=== PATIENT | female | born 1940 | race Caucasian/White ===

== ENCOUNTER 2023-12-03 11:06 | Inpatient (IN) | payer OTHER, MEDICARE ==
[2023-12-03 12:21] LABS: Absolute Lymphocytes (CBC) 1.4 K/uL (0.7-4.9); Hematocrit 29.4 % (36.0-45.0); Lymphocytes % 25.5 % (15.3-44.8); MCV 99.8 fL (80-100); MPV 9.1 fL (7.6-11.3); Platelets 230 thou/uL (152-406); RBC Red Blood Cell Count 2.95 M/uL (3.86-4.86)
[2023-12-03 12:41] LABS: Albumin 3.3 g/dL (3.4-5.0); Bilirubin Total 0.4 mg/dL (0.2-1.0); Protein, Total 6.2 g/dL (6.4-8.2)
--- NOTE | 2023-12-03 13:06 | RAD REPORT ---
EXAM DESCRIPTION: CTAbdomen Pelvis W Contrast - 12/03/2023 12:57 pm CLINICAL HISTORY: Abdominal pain. GI BLEED COMPARISON: No comparisons TECHNIQUE: Biphasic CT imaging of the abdomen and pelvis was performed with 100 ml non-ionic IV cont rast. All CT scans are performed using dose optimization technique as appropriate and may include automated exposure control or mA/KV adjustment according to patient size. FINDINGS: The lung bases are clear. The liver demonstrates multiple benign cysts. The spleen, pancreas, adrenal glands are within normal limits. Mild atrophy of both kidneys. Gallbladder is distended. Are No bowel obstruction, free air, free fluid or abscess. The appendix is not identified as a discrete s tructure, however, no secondary findings of appendicitis are identified. Prominent sigmoid diverticu losis coli without diverticulitis. No evidence of significant lymphadenopathy. Very mild lumbar degenerative changes. IMPRESSION: Prominent sigmoid diverticulosis coli without diverticulitis.
--- NOTE | 2023-12-03 14:28 | ER ---
Nurse's Notes [facility] Name: Nanette Boogie Age: 83 yrs Sex: Female : 1940 Arrival Date: 12/03/2023 Time: 11:06 Bed 13 Private MD: Diagnosis: Left sided colitis with rectal bleeding;Rectal Bleeding;Anemia, unspecified Presentation: 12/03 11:41 Chief complaint: Bright red blood mixed with dark red blood in stool, lower abdominal hb pain, and nausea x [address] Gutiérrez. Coronavirus screen: At this time, the client does not indicate any symptoms associated with coronavirus-19. Ebola Screen: No symptoms or risks identified at this time. Initial Sepsis Screen: Does the patient meet any 2 criteria? No. Patient's initial sepsis screen is negative. Does the patient have a suspected source of infection? No. Patient's initial sepsis screen is negative. Risk Assessment: Do you want to hurt yourself or someone else? Patient reports no desire to harm self or others. Onset of symptoms was December 01, 2023. 11:41 Method Of Arrival: Ambulatory hb 11:41 Acuity: GINI 3 hb Historical: - Allergies: 11:48 No Known Allergies; hb - PMHx: 18:10 Hypercholesterolemia; Acid Reflux; rs5 - PSHx: 18:10 hand surgery; rs5 - Immunization history:: Adult Immunizations up to date. - Social history:: Smoking status: Patient denies any tobacco usage or history of. Screenin:45 [facility] ED Fall Risk Assessment (Adult) History of falling in the last 3 months, rs5 including since admission No falls in past 3 months (0 pts) Confusion or Disorientation No (0 pts) Intoxicated or Sedated No (0 pts) Impaired Gait No (0 pts) Mobility Assist Device Used No (0 pt) Altered Elimination No (0 pt) Score/Fall Risk Level 0 - 2 = Low Risk Oriented to surroundings, Maintained a safe environment. 11:45 Abuse screen: Denies threats or abuse. Nutritional screening: No deficits noted. rs5 Tuberculosis screening: No symptoms or risk factors identified. Assessment: 11:45 General: Appears in no apparent distress. comfortable, Behavior is calm, cooperative. rs5 Pain: Denies pain. Neuro: Level of Consciousness is awake, alert, obeys commands, Oriented to person, place, time, situation. Cardiovascular: Rhythm is regular. Respiratory: Airway is patent Respiratory effort is even, unlabored, Respiratory pattern is regular, symmetrical, Breath sounds are clear bilaterally. GI: Abdomen is flat, non-distended, Bowel sounds present X 4 quads. Abd is soft and non tender X 4 quads. GI: Reports bloody stool, Patient currently denies nausea, pain. : No signs and/or symptoms were reported regarding the genitourinary system. EENT: No signs and/or symptoms were reported regarding the EENT system. 11:45 Derm: Skin is intact, Skin is pink, warm \T\ dry. Musculoskeletal: Range of motion: rs5 intact in all extremities. 12:50 Reassessment: No changes from previously documented assessment. rs5 14:01 Reassessment: Patient and/or family updated on plan of care and expected duration. Pain rs5 level reassessed. Patient is alert, oriented x 3, equal unlabored respirations, skin warm/dry/pink. Patient denies pain at this time. 14:30 Reassessment: Pt up for discharge. Awaiting hemoglobin results before discharge per MD rs5 orders. 15:10 Reassessment: No changes from previously documented assessment. Patient is alert, rs5 oriented x 3, equal unlabored respirations, skin warm/dry/pink. Provider notified of pt's hemoglobin results, discharge pending per MD instructions. 16:20 Reassessment: Patient and/or family updated on plan of care and expected duration. Pain rs5 level reassessed. Patient is alert, oriented x 3, equal unlabored respirations, skin warm/dry/pink. Patient denies pain at this time. GI: Patient currently denies nausea. 17:30 Reassessment: No changes from previously documented assessment. rs5 Vital Signs: 11:41 BP 142 / 74; Pulse 94; Resp 16; Temp 98.1(O); Pulse Ox 100% on R/A; Weight 81.65 kg; hb Height 5 ft. 7 in. ; Pain 0/10; 12:32 BP 125 / 62; Pulse 70; Resp 18; Pulse Ox 99% on R/A; rs5 13:40 BP 127 / 72; Pulse 80; Resp 17; Pulse Ox 99% on R/A; rs5 15:36 BP 125 / 80; Pulse 77; Resp 18; Pulse Ox 99% on R/A; rs5 11:41 Body Mass Index 28.19 (81.65 kg, 170.18 cm) hb 11:41 Pain Scale: Adult hb ED Course: 11:09 Patient arrived in ED. im 11:19 Casper Faustin MD is Attending Physician. kdr 11:40 Romie Wong, RN is Primary Nurse. rs5 11:45 Patient has correct armband on for positive identification. Placed in gown. Bed in low rs5 position. Call light in reach. Side rails up X2. 11:48 Triage completed. hb 11:48 Arm band placed on. hb 12:59 CT Abd/Pelvis - IV Contrast Only In Process Unspecified. EDMS 15:36 Anailsa Vargas MD is Hospitalizing Provider. kdr 15:38 No provider procedures requiring assistance completed. rs5 15:51 Blanco Coronado is Hospitalizing Provider. kdr 18:00 Patient admitted, IV remains in place. rs5 Administered Medications: No medications were administered Medication: 12:40 VIS not applicable for this client. rs5 Outcome: 14:27 Discharge ordered by . kdr 15:37 Decision to Hospitalize by Provider. kdr 18:00 Admitted to Med/surg rs5 18:00 Condition: stable 18:00 Instructed on the need for admit, Demonstrated understanding of instructions, 18:09 Patient left the ED. rs5 Signatures: Dispatcher [employer] EDMS Casper Faustin MD MD [facility] Gloria Valentine RN RN Romie Wong, ROSA RN rs5 Dawna Clay im
--- NOTE | 2023-12-03 14:28 | EDPHYS ---
Physician Documentation [facility] Name: Nanette Boogie Age: 83 yrs Sex: Female : 1940 Arrival Date: 12/03/2023 Time: 11:06 Bed 13 Private MD: ED Physician Casper Faustin HPI: 12/03 17:48 This 83 yrs old Female presents to ER via Ambulatory with complaints of GI Bleeding. kdr 17:49 Patient states that she has had bright red blood mixed with dark red blood in her stool kdr since yesterday. She is also had a very mild to minor lower abdominal pain and nausea for 2 days. Patient states that she was sent by Dr. Gutiérrez for evaluation. Onset: The symptoms/episode began/occurred gradually, 2 day(s) ago. Severity of symptoms: At their worst the symptoms were mild. The patient has experienced a previous episode. The patient has not recently seen a physician. Historical: - Allergies: 11:48 No Known Allergies; hb - PMHx: 18:10 Hypercholesterolemia; Acid Reflux; rs5 - PSHx: 18:10 hand surgery; rs5 - Immunization history:: Adult Immunizations up to date. - Social history:: Smoking status: Patient denies any tobacco usage or history of. ROS: 17:49 Constitutional: Negative for fever, chills, and weight loss, Eyes: Negative for injury, kdr pain, redness, and discharge, ENT: Negative for injury, pain, and discharge, Neck: Negative for injury, pain, and swelling, Cardiovascular: Negative for chest pain, palpitations, and edema, Respiratory: Negative for shortness of breath, cough, wheezing, and pleuritic chest pain, Back: Negative for injury and pain, : Negative for injury, bleeding, discharge, and swelling, MS/Extremity: Negative for injury and deformity, Skin: Negative for injury, rash, and discoloration, Neuro: Negative for headache, weakness, numbness, tingling, and seizure activity. Psych: Negative for depression, anxiety, suicide ideation, homicidal ideation, and hallucinations, Allergy/Immunology: Negative for hives, rash, and allergies, Endocrine: Negative for neck swelling, polydipsia, polyuria, polyphagia, and marked weight changes, Hematologic/Lymphatic: Negative for swollen nodes, abnormal bleeding, and unusual bruising, 17:49 Abdomen/GI: Positive for abdominal pain, rectal bleeding, Negative for nausea and vomiting, diarrhea, constipation, abdominal cramps, black/tarry stool, rectal pain, bowel incontinence, flatulence, Exam: 17:49 Constitutional: This is a well developed, well nourished patient who is awake, alert, kdr and in no acute distress. Head/Face: Normocephalic, atraumatic. Eyes: Pupils equal round and reactive to light, extra-ocular motions intact. Lids and lashes normal. Conjunctiva and sclera are non-icteric and not injected. Cornea within normal limits. Periorbital areas with no swelling, redness, or edema. Neck: Trachea midline, no thyromegaly or masses palpated, and no cervical lymphadenopathy. Supple, full range of motion without nuchal rigidity, or vertebral point tenderness. No Meningismus. Chest/axilla: Normal chest wall appearance and motion. Nontender with no deformity. No lesions are appreciated. Cardiovascular: Regular rate and rhythm with a normal S1 and S2. No gallops, murmurs, or rubs. Normal PMI, no JVD. No pulse deficits. Respiratory: Lungs have equal breath sounds bilaterally, clear to auscultation and percussion. No rales, rhonchi or wheezes noted. No increased work of breathing, no retractions or nasal flaring. Abdomen/GI: Soft, non-tender, with normal bowel sounds. No distension or tympany. No guarding or rebound. No evidence of tenderness throughout. Back: No spinal tenderness. No costovertebral tenderness. Full range of motion. Skin: Warm, dry with normal turgor. Normal color with no rashes, no lesions, and no evidence of cellulitis. MS/ Extremity: Pulses equal, no cyanosis. Neurovascular intact. Full, normal range of motion. Neuro: Awake and alert, GCS 15, oriented to person, place, time, and situation. Cranial nerves II-XII grossly intact. Motor strength 5/5 in all extremities. Sensory grossly intact. Cerebellar exam normal. Normal gait. Psych: Awake, alert, with orientation to person, place and time. Behavior, mood, and affect are within normal limits. Vital Signs: 11:41 BP 142 / 74; Pulse 94; Resp 16; Temp 98.1(O); Pulse Ox 100% on R/A; Weight 81.65 kg; hb Height 5 ft. 7 in. ; Pain 0/10; 12:32 BP 125 / 62; Pulse 70; Resp 18; Pulse Ox 99% on R/A; rs5 13:40 BP 127 / 72; Pulse 80; Resp 17; Pulse Ox 99% on R/A; rs5 15:36 BP 125 / 80; Pulse 77; Resp 18; Pulse Ox 99% on R/A; rs5 11:41 Body Mass Index 28.19 (81.65 kg, 170.18 cm) hb 11:41 Pain Scale: Adult hb MDM: 14:27 Patient medically screened. kdr 17:49 Data reviewed: vital signs, nurses notes, lab test result(s), radiologic studies. kdr 17:49 ED course: Since the patient's hemoglobin dropped by nearly 3 cores of a gram over a kdr 2-hour period, it was decided to admit her for further evaluation by GI. I spoke with Dr. Calvin who agreed to see the patient in consult. 12/03 11:43 Order name: CBC with Diff; Complete Time: 14:05 kdr 12/03 11:43 Order name: CMP; Complete Time: 14:05 kdr 12/03 11:43 Order name: Lipase; Complete Time: 14:05 kdr 12/03 11:43 Order name: Urinalysis w/ reflexes kdr 12/03 11:43 Order name: Type And Screen kdr 12/03 14:08 Order name: Hemoglobin kdr 12/03 17:09 Order name: Basic Metabolic Panel EDMS 12/03 17:09 Order name: Basic Metabolic Panel EDMS 12/03 17:09 Order name: Basic Metabolic Panel EDMS 12/03 17:09 Order name: Basic Metabolic Panel EDMS 12/03 17:09 Order name: Basic Metabolic Panel EDMS 12/03 17:09 Order name: Basic Metabolic Panel EDMS 12/03 17:09 Order name: CBC with Automated Diff EDMS 12/03 17:09 Order name: CBC with Automated Diff EDMS 12/03 17:09 Order name: CBC with Automated Diff EDMS 12/03 17:09 Order name: CBC with Automated Diff EDMS 12/03 17:09 Order name: CBC with Automated Diff EDMS 12/03 17:09 Order name: CBC with Automated Diff EDMS 12/03 17:10 Order name: Magnesium EDMS 12/03 17:10 Order name: Magnesium EDMS 12/03 17:10 Order name: Magnesium EDMS 12/03 17:10 Order name: Magnesium EDMS 12/03 17:10 Order name: Magnesium EDMS 12/03 17:10 Order name: Magnesium EDMS 12/03 17:10 Order name: Phosphorus EDMS 12/03 17:10 Order name: Phosphorus EDMS 12/03 17:10 Order name: Phosphorus EDMS 12/03 17:10 Order name: Phosphorus EDMS 12/03 17:10 Order name: Phosphorus EDMS 12/03 17:10 Order name: Phosphorus EDMS 12/03 12:08 Order name: CT Abd/Pelvis - IV Contrast Only; Complete Time: 14:05 kdr 12/03 16:21 Order name: GI Blood Loss Imaging EDKS 12/03 17:09 Order name: CONS Physician Consult EDMS 12/03 11:43 Order name: IV Saline Lock; Complete Time: 12:20 kdr 12/03 11:43 Order name: Labs collected and sent; Complete Time: 12:20 kdr Administered Medications: No medications were administered Disposition Summary: 12/03/23 15:37 Hospitalization Ordered Notes: Hospitalization Status: Observation kdr Location: Telemetry/MedSurg (observation)(12/03/23 15:37) kdr Condition: Fair(12/03/23 15:37) kdr Problem: new(12/03/23 15:37) kdr Symptoms: have improved(12/03/23 15:37) kdr Bed/Room Type: Standard kdr Provider: Blanco Coronado(12/03/23 15:51) kdr Room Assignment: [facility](12/03/23 17:26) eb Diagnosis - Left sided colitis with rectal bleeding kdr - Rectal Bleeding kdr - Anemia, unspecified kdr Forms: - Medication Reconciliation Form kdr - SBAR form kdr - Leadership Thank You Letter kdr Signatures: Dispatcher [employer] EDKS Casper Faustin MD MD kdr Gloria Valentine, ROSA RN Magda Duran Ricky RN RN rs5 Corrections: (The following items were deleted from the chart) 15:35 14:27 Home kdr kdr 15:35 14:27 new kdr kdr 15:35 14:27 have improved kdr kdr 15:35 14:27 Stable kdr kdr 15:35 14:27 Rectal Bleeding kdr kdr 15:51 15:37 Analisa Vargas kdr kdr 17:26 15:37 kdr eb
--- NOTE | 2023-12-03 16:21 | P.HP ---
Certification for Inpatient Patient admitted to: Observation With expected LOS: <2 Midnights Patient will require the following post-hospital care: None Practitioner: I am a practitioner with admitting privileges, knowledge of patient current condition, hospital course, and medical plan of care. Services: Services provided to patient in accordance with Admission requirements found in Title 42 Section 412.3 of the Code of Federal Regulations Patient History Date of Service: 12/03/23 Reason for admission: GI bleed, diverticulosis History of Present Illness: Nanette Luevano is an 83-year-old female with past medical history of HLD, TIA (plavix/ASA), and frequent UTI who presents to the ED with complaints of bright red recta blood mixed with dark red blood in stool, lower abdominal pain, and nausea x 2 days. She reports her rectal bleeding feeling like diarrhea. Last colonoscopy was in 2019 and endoscopy was 2016. She is taking Plavix and aspiri n which was last taken on Wednesday due to the start of bleeding. Her gastrointestinal doctor is Dr. Gutiérrez who recommended she come to the ED. Initial vitals BP 142 / 74; Pulse 94; Resp 16; Temp 98.1(O); Pulse Ox 100% on R/A Laboratory evaluation H&H 08/22, repeat hemoglobin 9.3, BUN/creatinine 20/1.08, GFR 51, UA pending CT abdomen pelvis reports "Prominent sigmoid diverticulosis coli without d iverticulitis" Nanette will be admitted to hospitalist service for further evaluation and treatment of GI bleed, Dr. Calvin has been consulted. Allergies morphine Adverse Reaction (Verified 08/22/18 13:19) CONFUSION Sulfa (Sulfonamide Antibiotics) Adverse Reaction (Verified 08/22/18 13:19) Nausea/Vomiting Home Medications: Docusate Sodium [Stool Softener] 100 mg PO DAILY 06/08/16 Gabapentin [Gralise] 300 mg PO TID 06/08/16 Montelukast [Singulair] 10 mg PO DAILY 06/08/16 Simvastatin 40 mg PO DAILY 06/08/16 Aspirin 81 mg PO DAILY 08/22/18 Calcium Carbonate/Vitamin D3 [Caltrate 600 + D Tablet] 1 each PO DAILY 08/22/18 Estrogens,Conj Cream [Premarin 0.625MG/Gm] 42.5 appl VAG M,W,F 08/22/18 Famotidine [Pepcid] 40 mg PO DAILY 08/22/18 Fexofenadine HCl [Merissa Allergy] 60 mg PO DAILY 08/22/18 Fiber [Fiber Diet] 1 each PO DAILY 08/22/18 Fluticasone Propionate [Flovent Diskus] 50 mcg IH DAILY 08/22/18 Multivitamin [Multiple Vitamins] 1 each PO DAILY 08/22/18 [place]-3S/Dha/Epa/Fish Oil [[place]-3 Fish Oil 1,200 mg Sfgl] 1 each PO DAILY 08/22/18 Topiramate [Topamax] 25 mg PO BID 08/22/18 Tramadol HCl [Ultram] 50 mg PO Q6HP PRN 08/22/18 Trimo-Magdaleno 1 appl VAG DAILY 08/22/18 - Past Medical/Surgical History Diabetic: No -: HLD -: TIA -: UTI -: Womb suspension -: hysterectomy -: lumbar laminectomy -: hand cyst removed -: hemilaminectomy -: basal joint removal -: ayesha fundaplacation -: neuroma removal on foot - Family History Mother -: Heart disease, Cancer Notes: Breast Cancer Father -: Lung disease, Diabetes, Other (see notes) Notes: Parkinson's - Social History Alcohol use: No CD- Drugs: No Caffeine use: Yes Review of Systems Cardiovascular: Light Headedness Gastrointestinal: Nausea Physical Examination - Physical Exam General: Alert, In no apparent distress, Oriented x3 HEENT: Atraumatic, Normocephalic, PERRLA Neck: Supple, 2+ carotid pulse no bruit, JVD not distended Respiratory: Clear to auscultation bilaterally, Normal air movement Cardiovascular: No edema, Normal pulses, Regular rate/rhythm, Normal S1 S2 Capillary refill: <2 Seconds Gastrointestinal: Normal bowel sounds, Soft and benign Musculoskeletal: No clubbing, No swelling, No contractures Integumentary: No rashes, No breakdown, No significant lesion Neurological: Normal gait, Normal speech, Normal strength at 5/5 x4 extr, Normal tone - Studies Laboratory Data (last 24 hrs) 12/03/23 12/03/23 12/03/23 14:30 12:00 12:00 WBC 5.50 Hgb 9.3 L 10.0 L Hct 29.4 L Plt Count 230 Sodium 141 Potassium 4.0 BUN 20 H Creatinine 1.08 H Glucose 102 Total Bilirubin 0.4 AST 19 ALT 27 Alkaline Phosphatase 43 L Lipase 25 Assessment and Plan - Plan Assessment and plan GI bleed with sigmoid diverticulosis without diverticulitis Nausea H&H 08/22, repeat hemoglobin 9.3 CT abdomen pelvis reports "Prominent sigmoid diverticulosis coli without diverticulitis" Type and screen accomplished in the ED Vital signs stable Last colonoscopy in 2019, last endoscopy [address] Dr. Monsivais consulted N.p.o. at midnight Monitor stool characteristics Transfusion if necessary H&H redraw in the a.m. Antiemetics tylenol for pain LATRICE versus CKD BUN/creatinine 20/1.08, GFR 51 UA pending History HLD History of TIA Will hold Plavix and aspirin for now Restart statin drug DVT PPx SCDs for now Full code LOS 48 hours Discharge Plan: Home Plan to discharge in: 24 Hours - Advance Directives Does patient have a Living Will: No Does patient have a Durable POA for Healthcare: No Time Spent Managing Pts Care (In Minutes): 50
[2023-12-03] MEDS ORDERED: ACETAMINOPHEN 500 MG TAB PO PRN (19:09)
[2023-12-03] MEDS ORDERED: HYDRALAZINE HCL 20 MG/ML VIAL IV PRN (19:10)
[2023-12-03 21:10] VITALS: BMI 28.1
[2023-12-04 03:49] LABS: Absolute Lymphocytes (CBC) 1.4 K/uL (0.7-4.9); Hematocrit 22.4 % (36.0-45.0); Lymphocytes % 26.3 % (15.3-44.8); MCV 99.6 fL (80-100); MPV 9.3 fL (7.6-11.3); Platelets 195 thou/uL (152-406); RBC Red Blood Cell Count 2.25 M/uL (3.86-4.86)
[2023-12-04 04:10] LABS: Phosphorus 3.1 mg/dL (2.5-4.9); Potassium 3.7 mEq/L (3.5-5.1)
[2023-12-04] MEDS ORDERED: HEPARIN 500 UNIT/5 ML SYR IV ONE (08:30)
[2023-12-04] MEDS ORDERED: TRAMADOL HCL 50 MG TAB PO PRN (09:23)
[2023-12-04] MEDS ORDERED: TOPIRAMATE 25 MG TAB PO PRN (09:23)
[2023-12-04] MEDS: FUROSEMIDE 20 MG/ 2ML VIAL IV ONE ×2 (10:00→15:14)
--- NOTE | 2023-12-04 10:24 | RAD REPORT ---
EXAM DESCRIPTION: NM - GI Blood Loss Imaging - 12/04/2023 10:19 am CLINICAL HISTORY: Gastrointestinal bleeding COMPARISON: None. TECHNIQUE: The patient was administered 24.7 millicuries technetium labeled red blood cells. Dynamic images of the abdomen and pelvis were obtained for 60 minutes FINDINGS: No abnormal radiotracer activity is seen within the bowel. No abnormality displayed IMPRESSION: No evidence of active gastrointestinal bleeding during the examination
--- NOTE | 2023-12-04 12:36 | P.PN ---
Date of Service: 12/04/23 Subjective Went to nuclear medicine, reporting no active bleed 1 unit PRBC transfusing No new complaints ROS 10 point ROS as noted above, otherwise negative Physical Exam General: AAOx3, NAD HEENT: Atraumatic, Normocephalic, PERRLA Neck: Supple, 2+ carotid pulse no bruit, JVD not distended Respiratory: Clear to auscultation bilaterally, Normal air movement, symmetrical chest wall movement Cardiovascular: No edema, Normal pulses, RRR, Normal S1 S2, no murmur appreciated Capillary refill: <2 Seconds Gastrointestinal: Normal bowel sounds, Soft and benign on palpation Musculoskeletal: No clubbing, No swelling, No contractures Integumentary: No rashes, No breakdown, No significant lesion Neurological: Normal gait, Normal speech, Normal strength at 5/5 x4 extr, Normal tone Vitals Reviewed Problem list GI bleed with sigmoid diverticulosis without diverticulitis Nausea LATRICE versus CKD History HLD History of TIA Plan GI bleed with sigmoid diverticulosis without diverticulitis Nausea H&H 08/22, repeat hemoglobin 9.3, This AM H/H 7.7/22.4-post transfusion H/H scheduled 1 unit [address] transfusion today CT abdomen pelvis reports "Prominent sigmoid diverticulosis coli without diverticulitis" NM GI bleed reports "No abnormal radiotracer activity is seen within the bowel. No abnormality displayed. No evidence of active gastrointestinal bleeding during the examination" Type and screen accomplished in the ED Vital signs stable Last colonoscopy in 2019, last endoscopy 2016 Dr. Monsivais consulted- procedure today N.p.o. at midnight Monitor stool characteristics Antiemetics tylenol for pain Raglan and mag citrate per Dr. Monsivais LATRICE versus CKD BUN/creatinine 22/0.89, GFR 64-improved UA still pending History HLD History of TIA Will hold Plavix and aspirin for now continue home statin drug DVT PPx SCDs for now Full code LOS 48 hours Discharge Plan: Home Plan to discharge in: 24 Hours <Jennifer Montes - Last Filed: 12/04/23 17:21> Patient seen and examined with Ms. Montes. Plan of care discussed with Ms. Montes. Lower GI bleed. GI Dr. Monsivais planning EGD and colonoscopy. Status post 1 unit PRBC transfusion. Transfuse PRBC as needed for symptomatic anemia. Aspirin and Plavix discontinued. Plan of care also discussed with family. <yamileth bennett - Last Filed: 12/05/23 16:54>
[2023-12-04] MEDS: GABAPENTIN 300 MG CAP PO SCH (13:58)
[2023-12-04] MEDS ORDERED: LIDOCAINE 1% MPF 5 ML VIAL ONE (15:39)
[2023-12-04] MEDS ORDERED: propofoL 200 MG/20 ML VIAL IV ONE (15:40)
[2023-12-04] MEDS: Ringers Lactate 1,000 ML IV ONE (15:51)
[2023-12-04] MEDS: METOCLOPRAMIDE 10 MG/2mL INJ IV SCH ×2 (17:15→23:52)
[2023-12-04] MEDS: GOLYTELY 4000 ML PO SCH (17:15)
[2023-12-04] MEDS: MAGNESIUM CITRATE 300 ML BOT PO SCH (17:15)
[2023-12-04 18:32] LABS: Protime INR 1.09
[2023-12-04] MEDS: NA CHLORIDE 0.9% 250 ML IV SCH (20:05)
[2023-12-04] MEDS: ATORVASTATIN 20 MG TAB PO SCH (20:13)
--- NOTE | 2023-12-04 21:18 | CON ---
Date of Consultation: 12/04/2023 Reason For Consultation: Hematochezia, melena, and anemia. History Of Present Illness: The patient is an 83-year-old white female with a past medical history o f hyperlipidemia, hypertension, TIA, on aspirin and Plavix, frequent urinary tract infections, gastro esophageal reflux disease. The patient presented to the hospital with 3 days of hematochezia and judy sandy. The patient takes aspirin and Plavix for past history of TIA. Last time Plavix intake was , approximately 4 days ago. She had a negative bleeding scan yesterday on initial admission to [facility]. The patient is seen as an outpatient at the [facility] Dr[facility] Marla barron in [facility] as. Had a colonoscopy in 2019, endoscopy in 2017. The patient states it is the first time she has h ad any type of blood per rectum, melena, or hematochezia. Past Medical History: Significant for hyperlipidemia, hypertension, gastroesophageal reflux disease, TIA, on aspirin and Plavix, frequent urinary tract infections, L-spine surgery, cataract surgery, bi lateral thumb surgeries, and hysterectomy with bilateral salpingo-oophorectomy as well. Allergies: TO MORPHINE AND SULFA. Home Medications: Include stool softener, gabapentin, Singulair, Zocor, aspirin, Plavix, calcium vit tabor D tablet, estrogen, Pepcid, Merissa, fiber, Flovent, multivitamin, omega-3 fish oil, Topamax, Ul tram, Trimo-Magdaleno vaginal cream. Past Surgical History: She had a womb resuspension, looks like it is a pessary and cyst removed. Ni ssen fundoplication and neuroma removed from her foot. Social History: She is for 62 years. 3 children. No tobacco. No alcohol. Family History: Father of colon perforation, also had a history of lung disease, diabetes and P arkinson's. Mother of breast cancer, also had a history of heart disease, as per chart review. Review of Systems: The patient has melena, hematochezia past 3 days, on aspirin and Plavix. Denies any hematemesis, cof fee-grounds emesis. By chart review, she has a history of some it appeared lower abdominal pain and nausea, but none now. The patient denies any epistaxis, hematuria, dysuria, polydipsia, hemoptysis, hematemesis, or hematemesis. She denies any lower extremity edema, muscle aches, joint ache. She do es have backache from time to time. No depression, anxiety. Physical Examination: Vital Signs: The patient is 5 foot 7, 180 pounds, BMI 28.2 kg/m2. Temperature 98.9 degrees Fahrenhe it, pulse 98, respirations 16, blood pressure 117/65, O2 saturation 99%. General: Elderly female, lying in bed, in no acute distress. HEENT: Normocephalic, atraumatic. Anicteric. Pupils equal, round, and reactive to light. Anicteri c. Oropharynx clear. Neck: Supple. No masses. Respiratory: Clear to auscultation bilaterally. Cardiac: Regular rate and rhythm. No gallops, rubs. Abdomen: Positive bowel sounds. Soft, nontender, nondistended. No hepatosplenomegaly. Extremities: No clubbing, cyanosis, or edema. 2+ pulses. Neuro: Alert and oriented x3. Grossly nonfocal. 5/5 motor strength. Sensation is intact to light touch. Data: The patient has a white count of 5.2, hemoglobin 7.7, down from 10.0 yesterday, of 22.4 today, MCV of 100, platelet count 195, polys 62%, lymphocytes 26%, monocytes 9%, eosinophils 1%. The patient has a sodium 141, potassium 3.7, chloride 110, bicarb 27, BUN is 22, creatinine of 0.9, glucose 115. Calcium 8.1, phosphorus 3.1, magnesium 2.0. AST of 19, ALT of 27, alkaline phosphatas e 43, total protein 6.2, albumin 3.3, lipase 25. UA is pending. She is to get a PT, PTT. CT abdome n and pelvis, prominent sigmoid diverticulosis without diverticulitis. Impression: 1.Hematochezia x3 days. On aspirin and Plavix. Aspirin and Plavix last taken on Wednesday 4 days ago . The patient had negative bleeding scan yesterday after admission to the hospital. 2.Melena x3 days. On aspirin and Plavix which have been held since Wednesday 4 days ago. 3.Anemia. Hemoglobin down to 7.7. 4.History of hyperlipidemia, hypertension, gastroesophageal reflux disease, TIA, on aspirin, Plavix, lumbar spine surgery, cataract surgery, bilateral thumb surgeries, total abdominal hysterectomy, mayra ateral salpingo-oophorectomy. Recommendation: 1.Continue serial H and H and transfuse p.r.n. 2.PPI therapy. 3.Continue resuscitation with IV fluids. 4.EGD and later colonoscopy. 5.Keep the patient n.p.o. for EGD. 6.Discontinue aspirin and Plavix. 7.Check PT, PTT. WS/MODL Voice ID: [id number] Report ID: [id number]
[2023-12-05 03:08] LABS: Absolute Lymphocytes (CBC) 1.2 K/uL (0.7-4.9); Hematocrit 26.9 % (36.0-45.0); Lymphocytes % 16.7 % (15.3-44.8); MCV 92.9 fL (80-100); MPV 9.1 fL (7.6-11.3); Platelets 199 thou/uL (152-406); RBC Red Blood Cell Count 2.89 M/uL (3.86-4.86)
[2023-12-05 03:32] LABS: Magnesium 2.2 mg/dL (1.6-2.4); Phosphorus 2.6 mg/dL (2.5-4.9); Potassium 3.1 mEq/L (3.5-5.1)
[2023-12-05] MEDS: POTASSIUM 25 MEQ EFFERV TAB PO ONE (05:49)
[2023-12-05] MEDS: Ringers Lactate 1,000 ML IV ONE (07:45)
[2023-12-05] MEDS ORDERED: propofoL 200 MG/20 ML VIAL IV ONE (07:49)
[2023-12-05] MEDS ORDERED: LIDOCAINE 1% MPF 5 ML VIAL ONE (07:49)
[2023-12-05] MEDS ORDERED: EPINEPHRINE 1 MG/ML VIAL ONE (08:01)
[2023-12-05] MEDS: FAMOTIDINE 20 MG TAB PO SCH (09:57)
[2023-12-05] MEDS: MONTELUKAST 10 MG TAB PO SCH (09:57)
[2023-12-05 11:25] LABS: Potassium 3.1 mEq/L (3.5-5.1)
[2023-12-05 11:47] LABS: Specific Gravity 1.022 (1.005-1.030); Urine Bacteria None Seen /HPF (<20); Urine Bilirubin NEGATIVE (Negative); Urine Blood Negative (Negative); Urine Clarity Clear (Clear); Urine Color Light-Yellow (Yellow); Urine Glucose 4+ (Over) (Negative); Urine Protein NEGATIVE (Negative); Urine RBC <5 /HPF (None Seen); Urine Urobilinogen Normal (Normal)
--- NOTE | 2023-12-05 14:02 | P.PN ---
Subjective Date of Service: 12/05/23 Chief Complaint: GI bleed, diverticulosis Nursing staff report patient crumpled to the floor while returning from the bathroom yesterday. Her hemoglobin was 8.6, patient was given 1 unit PRBC for symptomatic anemia. EGD done yesterday which was unremarkable. Patient prepped for colonoscopy today. Nursing staff reported bloody stools with the colonoscopy prep. Physical Examination - Vital Signs Temperature: 98.0 F Blood Pressure: 127/58 Pulse: 96 Respirations: 16 Pulse Ox (%): 98 Assessment And Plan - Plan Physical Exam General: AAOx3, NAD HEENT: Atraumatic, Normocephalic, PERRLA Neck: Supple, no bruit, JVD not distended Respiratory: Clear to auscultation bilaterally, Normal air movement, symmetrical chest wall movement Cardiovascular: No edema, Normal pulses, RRR, Normal S1 S2, no murmur appreciated Gastrointestinal: Normal bowel sounds, Soft and benign on palpation Musculoskeletal: No clubbing, No swelling, No contractures Integumentary: No rashes, No breakdown, No significant lesion Neurological: Normal gait, Normal speech, Normal strength at 5/5 x4 extr, Normal tone Vitals Reviewed Problem list GI bleed with sigmoid diverticulosis without diverticulitis Nausea LATRICE versus CKD History HLD History of TIA Plan GI bleed due to diverticular bleed Acute blood loss anemia Symptomatic anemia. Hemoglobin fell to 7.7, patient was given 1 unit PRBC transfusion for symptomatic anemia. Posttransfusion hemoglobin is up to 9. NM GI bleed scan reports "No abnormal radiotracer activity is seen within the bowel. No abnormality displayed. No evidence of active gastrointestinal bleeding during the examination" GI Dr. Monsivais input appreciated. Status post EGD and colonoscopy Patient found to have diverticulosis. No active bleeding during colonoscopy per GI Monitor for active bleed Advance diet as tolerated. Monitor H&H and transfuse as needed Antiemetics as needed. History HLD History of TIA Hold aspirin. May resume aspirin follow-up with PCP Plavix discontinued indefinitely. continue home statin. DVT PPx SCDs for now Full code Possible discharge in a.m. Discharge Plan: Home
[2023-12-06 07:11] LABS: Hematocrit 22.9 % (36.0-45.0); Lymphocytes % 19.2 % (15.3-44.8); MCV 93.7 fL (80-100); MPV 8.9 fL (7.6-11.3); Platelets 183 thou/uL (152-406); RBC Red Blood Cell Count 2.44 M/uL (3.86-4.86)
[2023-12-06 07:30] LABS: Magnesium 2.1 mg/dL (1.6-2.4); Phosphorus 1.7 mg/dL (2.5-4.9); Potassium 3.4 mEq/L (3.5-5.1)
[2023-12-06] MEDS: SOD FERRIC GLUC COMPLX/SUCROSE 250 MG in NA CHLORIDE 0.9% 250 ML IV SCH (09:11)
--- NOTE | 2023-12-06 21:06 | PN ---
Date of Progress Note: 12/06/2023 Subjective: The patient was seen this morning for followup. No new complaints or problems reported by the patient, lying in bed, not in distress. I have reviewed current hospital records. The patien t came in with GI bleeding and acute blood loss anemia and she has received blood transfusion and had endoscopy workup done. This morning, when I saw her, she reported no new complaints or problems. Objective: Vital Signs: Reviewed. HEENT: Unremarkable. Lungs: Clear to auscultation. Heart: Sounds normal. Abdomen: Soft. Bowel sounds normal. No guarding, rigidity, tenderness, distention. Extremities: No leg edema. Laboratory Data: Today, white count 5.4, hemoglobin 7.9, platelets of 183. Sodium 140, potassium 3. 4, chloride 108, bicarb 30, BUN 12, creatinine 0.86, glucose 106, phosphorus 1.7, magnesium 2.1. Yes terday's hemoglobin was 9.4. Impression: 1.Acute blood loss anemia. 2.Hypokalemia. 3.Hypophosphatemia. Plan: We will go ahead and continue current diet order. We will start the patient on IV iron 250 mg IV daily starting today. Monitor blood work closely on a daily basis. I will see her tomorrow for followup and depending on her condition and blood work, we will decide if we can discharge her to go home in next 1 or 2 days or not. Details and plan of treatment discuss ed with her. VENKAT/MODL Voice ID: [id number] Report ID: [id number]
[2023-12-07 03:49] LABS: Absolute Lymphocytes (CBC) 1.2 K/uL (0.7-4.9); Lymphocytes % 27.4 % (15.3-44.8); MCV 95.5 fL (80-100); MPV 8.9 fL (7.6-11.3); Platelets 188 thou/uL (152-406)
[2023-12-07 03:59] LABS: Phosphorus 2.7 mg/dL (2.5-4.9); Potassium 3.4 mEq/L (3.5-5.1)
[2023-12-07] MEDS ORDERED: POTASSIUM CL SA 10 MEQ TAB PO ONE (08:49)
[2023-12-07] MEDS: POTASSIUM CL SA 10 MEQ TAB PO ONE (09:11)
[2023-12-07] MEDS: CIPROFLOXACIN HCL 500 MG TAB PO SCH (09:11)
[2023-12-07 18:00] LABS: Hematocrit 27.2 % (36.0-45.0)
--- NOTE | 2023-12-07 20:53 | CON ---
Date of Consultation: 12/07/2023 Reason: Prior TIA, GI bleed. History: 83-year-old lady, well known to myself, admitted for melena and GI bleed, requiring packed red cell with a vivek in the hemoglobin 7.3. The patient has a history of TIA back in 2020, if I rec all. Had been on aspirin and Plavix in combination, that has since been discontinued. EGD demonstra morro no active bleeding. There was intraluminal gastric blood and duodenitis with some duodenal erosi ons. Question being posed is what type of antiplatelet therapy would be recommended from our standpo int postdischarge. She is not having any new neurologic symptom. Past Medical History: Prior TIA, cervical and lumbar spondylosis, remote history of headaches. Allergies: MORPHINE AND SULFA. Home Medications: She was on aspirin 81 and Plavix 75, simvastatin 40, gabapentin 300, Pepcid 40, Fl onase, topiramate 25, that is questionable, we do not see that in our chart in the office, tramadol a s needed. Social History: Nondrinker, nonsmoker. Independent with activities of daily living. Review of Systems: General: General good health. Eyes: Negative. Ears, Nose, Throat: Negative. Cardiovascular: Negative. Pulmonary: Negative. GI: Melena. : Negative. Musculoskeletal: Spondylosis, chronic neck and back pain. Neurologic: As noted. Psychiatric: Negative. Endocrine: Negative. Physical Examination: Vital Signs: 98.1, 80, 16, 138/70. General: She is a pleasant lady, sitting in bed, in no distress. Heart: Sinus rhythm. She is awake, alert, oriented to time, person, place, situation. Neurologic: Pupils reactive. Ocular motion full. Visual coronado full. Facial strength and sensatio n are normal. Tongue protrudes evenly. Soft palate elevates symmetrically bilaterally. Extremity s trength is full. Sensation intact. Reflexes 1/4. Cerebellar exam demonstrates no ataxia. Pertinent Labs: EGD is noted. Hemoglobin up to 9.4, white count 4.4, platelets 188. Creatinine 0.7 6, sodium normal. Impression: GI bleed, was on dual anti-platelet therapy. Recommendations: Would not resume dual anti-platelet therapy. PPI therapy was recommended and given the interaction of PPIs with Plavix, especially medications like omeprazole, and the fact that there is not active bleeding noted, I think aspirin monotherapy moving forward is reasonable. I would res tart the aspirin at 81 daily once we are confident that the hemoglobin is stable and then given the n paytoner data suggesting that less than 100 mg of aspirin is likely not efficacious for stroke prevention in patients with history of TIA move that up to 162 mg of aspirin daily, once hemoglobin is back to normal limits. Thank you for the consult. We will see her in the office next week. Her has an appointment with me next week as well. MAHIN/DINO Voice ID: [id number] Report ID: [id number]
[2023-12-07 22:17] VITALS: O2SAT 95
[2023-12-08 03:21] LABS: Absolute Lymphocytes (CBC) 1.1 K/uL (0.7-4.9); Hematocrit 27.9 % (36.0-45.0); Lymphocytes % 21.1 % (15.3-44.8); MCV 93.4 fL (80-100); MPV 8.7 fL (7.6-11.3); Platelets 197 thou/uL (152-406); RBC Red Blood Cell Count 2.99 M/uL (3.86-4.86)
[2023-12-08 03:31] LABS: Magnesium 1.9 mg/dL (1.6-2.4); Phosphorus 2.9 mg/dL (2.5-4.9); Potassium 3.7 mEq/L (3.5-5.1)
--- NOTE | 2023-12-08 06:42 | PN ---
Date of Progress Note: 12/07/2023 Subjective: The patient was seen this morning for followup. Her was with her at bedside. N o new complaints or problems reported. Does not report any more bleeding per rectum. No abdominal p ain, nausea, vomiting. Objective: Vital Signs: Reviewed. HEENT: Unremarkable. Lungs: Clear to auscultation. Cardiac: Heart sounds normal. Abdomen: Soft. Bowel sounds normal. No guarding, rigidity, tenderness, distention. Extremities: No leg edema. Laboratory Data: White count 4.4, hemoglobin 7.3, platelets 188. Sodium 144, potassium 3.4, chlorid e 114, bicarb 27, BUN 9, creatinine 0.76, glucose 106. Urine culture came back with klebsiella. Impression: 1.Acute blood loss anemia. 2.Urinary tract infection. 3.Hypokalemia. Plan: We will replace potassium per protocol. Considering patient's low hemoglobin, we will go ahea d and order 2 units of PRBC blood transfusion. Get post transfusion hemoglobin. Start the patient o n Cipro for urinary tract infection. We are waiting on Neurology consultation from Dr. Lawton to tosha uate the patient regarding what to do for antiplatelet therapy, as the patient was taking aspirin and Plavix for her TIA problem prior to this hospital admission. VENKAT/MODL Voice ID: [id number] Report ID: [id number]
[2023-12-08 08:42] VITALS: BP 137/63; TEMP 97.4
[2023-12-08] MEDS ORDERED: POTASSIUM CL SA 10 MEQ TAB PO ONE (09:00)
--- NOTE | 2023-12-08 23:01 | DS ---
Date of Discharge: 12/08/2023 Disposition: Discharged to go home. Physical Examination: HEENT: Unremarkable. Lungs: Clear to auscultation. Heart: Sounds normal. Abdomen: Soft. Bowel sounds normal. No guarding, rigidity, tenderness, distention. Extremities: No leg edema. Laboratory Data: Last CBC today, white count 5, hemoglobin 9.6, platelets 197. Yesterday, hemoglobi n 4 after 2 units of PRBC blood transfusion yesterday and prior to blood transfusion yesterday ash cordero, hemoglobin was 7.3. Last chemistry today, sodium 144, potassium 3.7, chloride 113, bicarb 27, BUN 11, creatinine 0.87, glucose 108, magnesium 1.0. Discharge Medications And Instructions: Continue all prior home medications except following changes : 1.Stop Plavix. 2.Do not take any aspirin until further instructions. 3.Do not take Aleve, Motrin, ibuprofen, or naproxen type of medications. 4.Start Cipro 500 mg take 1 tablet by mouth 2 times a day for 1 week. 5.Start [id number] iron 65 mg take 1 tablet by mouth daily after meals. 6.Follow up at my office next week on Wednesday, which is 12/15/2023. 7.Come to office on 12/14/2023 for CBC blood test. Final Diagnoses: 1.Anemia due to acute GI blood loss. 2.Diverticulosis. 3.Urinary tract infection. 4.Hyperlipidemia. 5.Right-sided carotid artery stenosis. 6.Gastroesophageal reflux disease. 7.Osteoarthritis, multiple sites. Hospital Course: This is an 83-year-old pleasant female patient, who was admitted to the hospital wi th lower GI bleeding as well as acute blood loss anemia. Please see dictated H and P for more inform ation. The patient was admitted to the hospital under Hospitalist Service over the weekend while I w as out of town and I took over service as of Wednesday of this week. GI consultation was obtained from Dr. Monsivais, who did EGD and colonoscopy and hemodynamically the patient remained stable after the pro cedure. She did require 2 more units of PRBC blood transfusion yesterday and after blood transfusion , hemoglobin has remained stable. She does not have any more blood in stool. No abdominal pain. No nausea, vomiting. Overall, her condition is stable. I will obtain Neurology consultation with Dr. Lawton as the patient was taking aspirin and Plavix prior to this admission because of her history of TIA and during this admission, we did not give her any anti-platelet therapy. Dr. Lawton has recommen ded to stop Plavix permanently and to restart aspirin 81 mg to take 2 tablets daily once we are certa in that there is no more evidence of any GI bleeding and I have discussed all these details with the patient and her and at the time of next week's office appointment, depending on her condition , we will provide recommendation to start aspirin at that time. The patient was discharged in stable condition with above-mentioned medications and instructions. VENKAT/MODL Voice ID: [id number] Report ID: [id number]
== END 2023-12-08 10:01 | disposition home or self-care (01) | DRG 378 ==
LOC: ER 11:06 → OBSVTOIN 17:05 → INTOOBSV 17:05 → 2ND 17:05 → OBSVTOIN 12-05 15:51
PROVIDERS: ADMIT Internal Medicine; ATTEND Internal Medicine
PROC: 0DB98ZX Excision of Duodenum, Via Natural or Artificial Opening Endoscopic, Diagnostic (ICD-10-PCS; 2023-12-04)
PROC: 30233N1 Transfusion of Nonautologous Red Blood Cells into Peripheral Vein, Percutaneous Approach (ICD-10-PCS; principal; 2023-12-04 16:00)
PROC: 0DJD8ZZ Inspection of Lower Intestinal Tract, Via Natural or Artificial Opening Endoscopic (ICD-10-PCS; 2023-12-05)
DX: K57.31 Diverticulosis of large intestine without perforation or abscess with bleeding (principal); D62 Acute posthemorrhagic anemia; K51.50 Left sided colitis without complications; N39.0 Urinary tract infection, site not specified; E78.00 Pure hypercholesterolemia, unspecified; E87.6 Hypokalemia; K63.5 Polyp of colon; K64.8 Other hemorrhoids; I65.21 Occlusion and stenosis of right carotid artery; M19.09 Primary osteoarthritis, other specified site; E83.39 Other disorders of phosphorus metabolism; K26.9 Duodenal ulcer, unspecified as acute or chronic, without hemorrhage or perforation; K22.2 Esophageal obstruction; E78.5 Hyperlipidemia, unspecified; K21.9 Gastro-esophageal reflux disease without esophagitis; Z88.5 Allergy status to narcotic agent; Z88.2 Allergy status to sulfonamides; Z79.82 Long term (current) use of aspirin; Z79.02 Long term (current) use of antithrombotics/antiplatelets; Z86.73 Personal history of transient ischemic attack (TIA), and cerebral infarction without residual deficits; Z79.899 Other long term (current) drug therapy; Z90.710 Acquired absence of both cervix and uterus
CPT/HCPCS: 36415; 36430; 74177; 78278; 80048; 80053; 81001; 83690; 83735; 84100; 85014; 85018; 85025; 85610; 85730; 86850; 86900; 86901; 86920; 86922; 87077; 87086; 87088; 87186; 88305; 88312; 97116; 97161; 97530; 99285; A9560; G0378; J0171; J1642; J1940; J2001; J2704; J2765; J2916; J7050; J7120; P9016; Q9967